=== PATIENT | female | born 1945 | race American Indian/Alaskan Native ===

== ENCOUNTER 2018-11-29 10:36 | Outpatient (CLI) | payer MEDICARE ==
--- NOTE | 2018-11-29 12:19 | Vascular Lab Report ---
. DUPLEX DOPPLER LOWER EXTREMITY VEINS, LEFT INDICATION: Left leg swelling for 2 weeks. TECHNIQUE: Duplex doppler imaging was performed through the veins of the left lower extremity using venous compression and other maneuvers. COMPARISON: No relevant prior imaging study available. FINDINGS: Left Common femoral vein: Negative. Left Superficial femoral vein: Negative. Left Popliteal vein: Negative. Left Calf veins: Negative. Additional findings: None.. IMPRESSION: No sonographic evidence for DVT in the left lower extremity. Signer Name: Jag Baker Jr, MD Signed: 11/29/2018 12:15 PM Workstation Name: [id number]
== END 2018-11-29 10:37 | disposition home or self-care (01) ==
LOC: VAS 10:36
PROVIDERS: ATTEND Podiatrist Foot & Ankle Surgery
DX: M79.89 Other specified soft tissue disorders (principal); M79.662 Pain in left lower leg